=== PATIENT | male | born 1990 | race Caucasian/White ===

== ENCOUNTER 2025-02-24 18:28 | Emergency (ER) | payer SELFPAY ==
[~2025-02-24] VITALS: Ht 180.3 cm; Wt 92.0 kg
[2025-02-24 18:41] VITALS: O2SAT 100
[2025-02-24 18:58] VITALS: BP 112/60; PULSE 91; RESP 18; TEMP 36.7; O2SAT 99
[2025-02-24 19:26] LABS: HEMATOCRIT. 44.4 % (42.0-52.0); HEMOGLOBIN. 15.5 g/dL (14.0-18.0); MEAN PLATELET VOLUME 8.5 fl (7.4-10.4); PLATELET 257 x1000/uL (130-400); RED BLOOD CELL COUNT 5.23 mill/uL (4.7-6.1); RED CELL DISTRIBUTION WIDTH 13.1 % (11.6-14.6)
[2025-02-24 19:46] LABS: CREATININE 1.0 mg/dL (0.6-1.3); UREA NITROGEN BLOOD 16 mg/dL (9-23)
[2025-02-24 19:48] LABS: ASPARTATE AMINOTRANSFERASE 15 IU/L (<34); BILIRUBIN DIRECT 0.5 mg/dL (<=3.0); BILIRUBIN TOTAL 1.4 mg/dL (0.1-1.0)
[2025-02-24 19:49] LABS: PROTEIN TOTAL 8.2 g/dL (6.0-8.3)
[2025-02-24 20:20] LABS: LYMPHOCYTES % MANUAL 13.0 % (20.0-50.0); MONOCYTES % MANUAL 5.0 % (2.0-8.0); NEUTROPHILS % MANUAL 82.0 % (45.0-75.0); PLATELET ESTIMATE NORMAL
[2025-02-25] MEDS ORDERED: MAG-55 MT (09:43)
[2025-02-25] MEDS ORDERED: ACET-2708 MT (09:43)
[2025-02-25] MEDS ORDERED: FAMO20TA8 MT (09:43)
[2025-02-25] MEDS ORDERED: ONDA-239 PO (09:43)
== END 2025-02-24 22:40 | disposition left against medical advice (07) ==
LOC: ER 18:28
DX: R11.2 Nausea with vomiting, unspecified (principal); Z53.21 Procedure and treatment not carried out due to patient leaving prior to being seen by health care provider
CPT/HCPCS: 36415; 80048; 80076; 85025

== ENCOUNTER 2025-02-25 07:47 | Emergency (ER) | payer OTHER ==
[~2025-02-25] VITALS: Ht 170.2 cm; Wt 77.0 kg
[2025-02-25 07:52] VITALS: O2SAT 98
[2025-02-25 08:27] LABS: BASOPHILS % 0.4 % (0.0-2.0); EOSINOPHILS % 0.7 % (0.0-5.0); HEMATOCRIT. 44.0 % (42.0-52.0); HEMOGLOBIN. 15.4 g/dL (14.0-18.0); LYMPHOCYTES % 14.2 % (20.0-50.0); MEAN PLATELET VOLUME 8.5 fl (7.4-10.4); MONOCYTES % 8.8 % (2.0-8.0); NEUTROPHILS % 75.9 % (40.0-76.0); PLATELET 256 x1000/uL (130-400); RED BLOOD CELL COUNT 5.09 mill/uL (4.7-6.1); RED CELL DISTRIBUTION WIDTH 13.6 % (11.6-14.6)
[2025-02-25 08:43] LABS: CREATININE 1.1 mg/dL (0.6-1.3); UREA NITROGEN BLOOD 14 mg/dL (9-23)
[2025-02-25 08:51] LABS: CLARITY URINE CLEAR (CLEAR); COLOR URINE ORANGE (YELLOW); GLUCOSE URINE TRACE (NEGATIVE); KETONES URINE TRACE (NEGATIVE); LEUKOCYTE ESTERASE URINE TRACE (NEGATIVE); NITRITE URINE NEGATIVE (NEGATIVE); OCCULT BLOOD URINE 1+ (NEGATIVE); PH URINE 5.5 (4.5-8.0); PROTEIN URINE 1+ (NEGATIVE); SPECIFIC GRAVITY URINE 1.035 (1.005-1.030); UROBILINOGEN URINE 1.0 E.U./dL (0.2-1.0)
[2025-02-25] MEDS: KETOROLAC 30MG/ML VIAL IM ONE (08:56)
[2025-02-25] MEDS: MAGNESIUM/ALUMINUM HYDROXIDE/SIMETHICONE 30ML UDC PO ONE (08:56)
[2025-02-25] MEDS: ONDANSETRON 4MG ODT PO ONE (08:56)
[2025-02-25 09:06] LABS: ASPARTATE AMINOTRANSFERASE 17 IU/L (<34); BILIRUBIN DIRECT 0.4 mg/dL (<=3.0); BILIRUBIN TOTAL 1.4 mg/dL (0.1-1.0); PROTEIN TOTAL 8.0 g/dL (6.0-8.3)
[2025-02-25 09:09] LABS: RBC URINE 0-2 /hpf (0-2); SQUAMOUS EPITHELIAL CELL URINE FEW /lpf (RARE/1+)
[2025-02-25 09:10] LABS: BACTERIA URINE TRACE; MUCUS URINE 3+ /lpf (NONE/TRACE)
[2025-02-25] MEDS ORDERED: MAG-55 MT (09:43)
[2025-02-25] MEDS ORDERED: FAMO20TA8 MT (09:43)
[2025-02-25] MEDS ORDERED: ONDA-239 PO (09:43)
[2025-02-25] MEDS ORDERED: ACET-2708 MT (09:43)
[2025-02-25 09:52] VITALS: BP 126/73; PULSE 63; RESP 14; TEMP 37; O2SAT 98
[2025-02-26] MEDS ORDERED: [UNRECOGNIZED DRUG - CODE] MT (11:40)
[2025-02-26] MEDS ORDERED: POTA-205 MT (11:40)
[2025-02-26] MEDS ORDERED: IOHEXOL-350 100 ML BOTTLE ONE (19:27)
== END 2025-02-25 09:56 | disposition home or self-care (01) ==
LOC: ER 07:47
DX: R10.13 Epigastric pain (principal); R51.9 Headache, unspecified; R11.0 Nausea; Z79.899 Other long term (current) drug therapy
CPT/HCPCS: 80076; 80048; 81003; 83690; 85025; 36415; 96372; 99283; Q9967; Q0162; J1885; Z7610

== ENCOUNTER 2025-02-26 08:26 | Emergency (ER) | payer OTHER ==
[~2025-02-26] VITALS: Ht 165.1 cm; Wt 88.9 kg
[~2025-02-26 08:26] MED LIST: ACET-2708 MT; FAMO20TA8 MT; MAG-55 MT; ONDA-239 PO
[2025-02-26 08:35] VITALS: O2SAT 100
[2025-02-26] MEDS: SODIUM CHLORIDE 0.9% 1,000 ML IV ONE (10:33)
[2025-02-26] MEDS: FAMOTIDINE 20MG/2ML VIAL IV ONE (10:33)
[2025-02-26] MEDS: MAGNESIUM/ALUMINUM HYDROXIDE/SIMETHICONE 30ML UDC PO ONE (10:33)
[2025-02-26] MEDS: METOCLOPRAMIDE HCL 10MG/2ML VIAL IV ONE (10:33)
[2025-02-26] MEDS: ACETAMINOPHEN 325MG TABLET PO ONE (10:34)
[2025-02-26 10:39] LABS: BASOPHILS % 0.2 % (0.0-2.0); EOSINOPHILS % 0.1 % (0.0-5.0); HEMATOCRIT. 43.3 % (42.0-52.0); HEMOGLOBIN. 15.0 g/dL (14.0-18.0); LYMPHOCYTES % 11.1 % (20.0-50.0); MEAN PLATELET VOLUME 8.4 fl (7.4-10.4); MONOCYTES % 7.6 % (2.0-8.0); NEUTROPHILS % 81.0 % (40.0-76.0); PLATELET 265 x1000/uL (130-400); RED BLOOD CELL COUNT 5.05 mill/uL (4.7-6.1); RED CELL DISTRIBUTION WIDTH 13.4 % (11.6-14.6)
[2025-02-26 10:43] LABS: CREATININE 0.9 mg/dL (0.6-1.3); UREA NITROGEN BLOOD 13 mg/dL (9-23)
[2025-02-26 10:45] LABS: ASPARTATE AMINOTRANSFERASE 16 IU/L (<34)
[2025-02-26 10:46] LABS: BILIRUBIN TOTAL 2.0 mg/dL (0.1-1.0); PROTEIN TOTAL 7.2 g/dL (6.0-8.3)
[2025-02-26 10:57] LABS: PHOSPHORUS 0.7 mg/dL (2.5-4.9)
[2025-02-26] MEDS ORDERED: [UNRECOGNIZED DRUG - CODE] MT (11:40)
[2025-02-26] MEDS ORDERED: POTA-205 MT (11:40)
[2025-02-26] MEDS: POTASSIUM-SODIUM PHOSPHATE POWDER PACKET PO ONE (11:56)
[2025-02-26] MEDS: POTASSIUM CHLORIDE 20MEQ TABLET SR PO ONE (11:56)
[2025-02-26 12:03] VITALS: BP 156/89; PULSE 60; RESP 12; TEMP 36.9; O2SAT 100
[2025-02-26] MEDS ORDERED: IOHEXOL-350 100 ML BOTTLE ONE (13:29)
== END 2025-02-26 12:08 | disposition home or self-care (01) ==
LOC: ER 08:26
DX: R51.9 Headache, unspecified (principal); R10.13 Epigastric pain; E83.39 Other disorders of phosphorus metabolism; E87.6 Hypokalemia; Z79.899 Other long term (current) drug therapy
CPT/HCPCS: 80053; 83690; 83735; 84100; 85025; 36415; 70496; 70498; 70450; 74176; 93005; 96361; 96374; 96375; 99285; Q9967; J1308; J2765; J7030; Z7610

== ENCOUNTER 2025-02-27 17:56 | Inpatient (IN) | payer OTHER ==
[~2025-02-27] VITALS: Ht 180.3 cm; Wt 85.7 kg
[~2025-02-27 17:56] MED LIST changes: +POTA-205 MT; +[UNRECOGNIZED DRUG - CODE] MT
[2025-02-27] MEDS: KETOROLAC 15MG/ML VIAL IV ONE (18:30)
[2025-02-27] MEDS: ONDANSETRON HCL 4MG/2ML INJ IV ONE (18:30)
[2025-02-27 18:50] LABS: BASOPHILS % 0.4 % (0.0-2.0); EOSINOPHILS % 0.2 % (0.0-5.0); HEMATOCRIT. 44.5 % (42.0-52.0); HEMOGLOBIN. 15.1 g/dL (14.0-18.0); LYMPHOCYTES % 15.6 % (20.0-50.0); MEAN PLATELET VOLUME 8.3 fl (7.4-10.4); MONOCYTES % 9.0 % (2.0-8.0); NEUTROPHILS % 74.8 % (40.0-76.0); PLATELET 256 x1000/uL (130-400); RED BLOOD CELL COUNT 5.10 mill/uL (4.7-6.1); RED CELL DISTRIBUTION WIDTH 13.5 % (11.6-14.6)
[2025-02-27 19:07] LABS: CREATININE 0.9 mg/dL (0.6-1.3); TROPONIN I HIGH SENSITIVITY < 4 ng/L (3.0-53); UREA NITROGEN BLOOD 11 mg/dL (9-23)
[2025-02-27 19:08] LABS: ETHANOL BLOOD < 10 mg/dL (<10)
[2025-02-27 19:09] LABS: ASPARTATE AMINOTRANSFERASE 17 IU/L (<34); BILIRUBIN DIRECT 0.6 mg/dL (<=3.0)
[2025-02-27 19:10] LABS: BILIRUBIN TOTAL 2.1 mg/dL (0.1-1.0); PROTEIN TOTAL 7.6 g/dL (6.0-8.3)
[2025-02-27 19:12] LABS: CLARITY URINE TURBID (CLEAR); COLOR URINE DARK YELLOW (YELLOW); GLUCOSE URINE NEGATIVE (NEGATIVE); KETONES URINE 3+ (NEGATIVE); LEUKOCYTE ESTERASE URINE TRACE (NEGATIVE); NITRITE URINE NEGATIVE (NEGATIVE); OCCULT BLOOD URINE TRACE (NEGATIVE); PH URINE 7.5 (4.5-8.0); PROTEIN URINE TRACE (NEGATIVE); SPECIFIC GRAVITY URINE 1.025 (1.005-1.030); UROBILINOGEN URINE 1.0 E.U./dL (0.2-1.0)
[2025-02-27 19:22] LABS: BACTERIA URINE 3+; SQUAMOUS EPITHELIAL CELL URINE FEW /lpf (RARE/1+)
[2025-02-27 19:32] LABS: *AMPHETAMINES SCREEN URINE NEGATIVE (NEGATIVE); *BARBITURATES SCREEN URINE NEGATIVE (NEGATIVE); *BENZODIAZEPINES SCREEN URINE NEGATIVE (NEGATIVE); *COCAINE SCREEN URINE NEGATIVE (NEGATIVE); CANNABINOID URINE SCREEN PRESUMPTIVE POSITIVE (NEGATIVE); ECSTASY MDMA SCREEN URINE NEGATIVE (NEGATIVE); METHADONE URINE SCREEN NEGATIVE (NEGATIVE); OPIATES URINE SCREEN NEGATIVE (NEGATIVE); PHENCYCLIDINE URINE SCREEN NEGATIVE (NEGATIVE)
[2025-02-27] MEDS: IOHEXOL-300 100 ML BOTTLE ONE (22:30)
[2025-02-28] MEDS: ONDANSETRON HCL 4MG/2ML INJ IV NR (00:32)
[2025-02-28] MEDS: PIPERACILLIN/TAZO 3.375G/50ML 50 ML IV STA (00:32)
[2025-02-28] MEDS: SODIUM CHLORIDE 0.9% 1,000 ML IV ONE (00:33)
[2025-02-28] MEDS: KETOROLAC 15MG/ML VIAL IV NR (00:33)
[2025-02-28 00:54] VITALS: BP 129/82; PULSE 58; RESP 18; TEMP 36.696
[2025-02-28] MEDS ORDERED: HYDROCODONE/ACETAMINOPHEN 5/325MG TABLET PO PRN (02:45)
[2025-02-28] MEDS ORDERED: ONDANSETRON HCL 4MG/2ML INJ IV PRN ×2 (02:45→16:30)
[2025-02-28] MEDS ORDERED: SODIUM CHLORIDE 0.9% 1,000 ML IV SCH (02:45)
[2025-02-28 08:00] VITALS: BP 124/69; PULSE 62; RESP 20; TEMP 36.8; O2SAT 97
[2025-02-28] MEDS: PANTOPRAZOLE 40MG DR TABLET PO SCH (10:11)
[2025-02-28 12:00] VITALS: BP 130/75; PULSE 61; RESP 18; TEMP 36.7; O2SAT 99
[2025-02-28 12:29] LABS: HEPATITIS C AB NON REACTIVE (Neg) (Negative)
[2025-02-28 16:00] VITALS: BP 139/93; PULSE 64; RESP 18; TEMP 36.7; O2SAT 99
[2025-02-28] MEDS ORDERED: PANTOPRAZOLE SODIUM 40 MG/VIAL IV SCH (16:30)
[2025-02-28] MEDS ORDERED: ACETAMINOPHEN 325MG TABLET PO PRN (16:30)
[2025-02-28] MEDS ORDERED: LEVO-65 MT (16:41)
[2025-02-28] MEDS ORDERED: NALOXONE HCL 0.4MG/ML VIAL IV PRN (16:45)
[2025-02-28 16:56] VITALS: BP 139/93; PULSE 64; TEMP 98; O2SAT 99
[2025-02-28] MEDS ORDERED: CEFTRIAXONE 1GM/50ML 50 ML IV SCH (18:00)
== END 2025-02-28 17:20 | disposition home or self-care (01) | DRG 690 ==
LOC: ER 17:56 → EDBEDREQ 22:45 → EDBEDREQTM 22:45 → ENRESERV 23:45 → 8EST 02-28 00:55
PROVIDERS: ADMIT Internal Medicine; ATTEND Internal Medicine
DX: N39.0 Urinary tract infection, site not specified (principal); R17 Unspecified jaundice; Z20.822 Contact with and (suspected) exposure to COVID-19
CPT/HCPCS: 36415; 71045; 74177; 76705; 80048; 80076; 80305; 80320; 81003; 83735; 84484; 85025; 86705; 87340; 87426; 93005; 99285; J0696; J1885; J2405; J2543; J7030; Q9967; G0480